=== PATIENT | female | born 1985 | race Caucasian/White ===

== ENCOUNTER 2025-04-19 16:39 | Outpatient (REF) | payer MEDICAID, OTHER, SELFPAY ==
[2025-04-20 03:22] LABS: CT PCR Urine NOT DETECTED (Not Detect.); NG PCR Urine NOT DETECTED (Not Detect.)
== END 2025-04-19 16:40 | disposition home or self-care (01) ==
LOC: HO.HHCLNP 16:39
PROVIDERS: Visit Provider Student in an Organized Health Care Education/Training Program
DX: Z00.00 Encounter for general adult medical examination without abnormal findings (principal); Z11.3 Encounter for screening for infections with a predominantly sexual mode of transmission
CPT/HCPCS: 36415; 87491; 87591